=== PATIENT | male | born 1995 ===

== ENCOUNTER 2022-08-08 11:34 | Emergency (ER) | payer MEDICAID ==
[~2022-08-08] VITALS: Ht 190.5 cm; Wt 122.5 kg
[2022-08-08] MEDS ORDERED: LIDOCAINE HCL 1% 20 ML VIAL ONE (11:54)
--- NOTE | 2022-08-08 11:57 | NUR ---
PT IS IN ROOM #2B. DR TAYLOR EVALUATED THE PT.
[2022-08-08] MEDS ORDERED: BACITRACIN ZINC OINT 15 GM TUBE TOP ONE (13:15)
[2022-08-08] MEDS ORDERED: TDAP DIPH,PERTUSS,TET VAC/PF 0.5 ML DISP.SYRIN IM ONE ×2 (13:15→13:18)
[2022-08-08] MEDS ORDERED: BACITRACIN ZINC OINT 15 GM TUBE ONE (13:34)
--- NOTE | 2022-08-08 13:35 | NUR ---
PT WAS D/C'd TO HOME. D/C INSTRUCTIONS GIVEN TO THE PT BY DR TAYLOR.
[2022-08-08 13:40] VITALS: BP 136/81
[2022-08-08] MEDS ORDERED: LIDOCAINE HCL 1% 20 ML VIAL IJ ONE (13:45)
== END 2022-08-08 13:41 | disposition home or self-care (01) ==
LOC: ER 11:38
DX: S61.211A Laceration without foreign body of left index finger without damage to nail, initial encounter (principal); W50.0XXA Accidental hit or strike by another person, initial encounter; Y93.64 Activity, baseball; Y92.320 Baseball field as the place of occurrence of the external cause
CPT/HCPCS: 99283; 73130; 90715; 90471; 12002; J3490; A4663

== ENCOUNTER 2022-08-10 12:10 | Emergency (ER) | payer MEDICAID ==
[~2022-08-10] VITALS: Ht 190.5 cm; Wt 122.5 kg
[2022-08-10] MEDS ORDERED: NEOMY/BACITRA/POLYMYXIN B OINT UD PACKET TP ONE ×2 (12:23→12:45)
--- NOTE | 2022-08-10 12:32 | NUR ---
Cleaned, applied ABX and re dress the suture site of LT index finger.
[2022-08-10 12:33] VITALS: BP 130/80
--- NOTE | 2022-08-10 12:33 | NUR ---
Patient discharged to home in stable condition. Written and verbal after care instructions given. Patient verbalizes understanding of instructions. Stressed follow up or return to ER for worsening s/s.
== END 2022-08-10 12:33 | disposition home or self-care (01) ==
LOC: ER 12:10
DX: S61.211D Laceration without foreign body of left index finger without damage to nail, subsequent encounter (principal); W21.31XD Struck by shoe cleats, subsequent encounter
CPT/HCPCS: A4663

== ENCOUNTER 2022-08-19 23:01 | Emergency (ER) | payer MEDICAID ==
[~2022-08-19] VITALS: Ht 190.5 cm; Wt 117.9 kg
[2022-08-20 01:27] VITALS: BP 121/81
== END 2022-08-20 00:15 | disposition home or self-care (01) ==
LOC: ER 23:04
DX: S61.211D Laceration without foreign body of left index finger without damage to nail, subsequent encounter (principal); X58.XXXD Exposure to other specified factors, subsequent encounter
CPT/HCPCS: A4663